=== PATIENT | female | born 1960 | race Caucasian/White ===

== ENCOUNTER 2018-04-01 13:00 | Emergency (ER) | payer OTHER ==
[2018-04-01] VITALS (7 sets, daily range): BP systolic 82–94; BP diastolic 45–52
[~2018-04-01] VITALS: Ht 154.9 cm; Wt 75.0 kg
[2018-04-01] MEDS ORDERED: SODIUM CHLORIDE 0.9% 1,000 ML IV ONE ×3 (13:15→18:00)
[2018-04-01] MEDS ORDERED: DEXTROSE 50%-WATER 25 GM/50 ML SYRINGE IVP ONE (13:15)
[2018-04-01 13:19] LABS: GLUCOSE,POINT OF CARE 44 MG/DL (70-110)
[2018-04-01 13:47] LABS: HEMATOCRIT 23.4 % (36-46); HEMOGLOBIN 7.1 g/dL (12.0-16.0); MEAN CORPUSCULAR HEMOGLOBIN 18.5 pg (26.0-34.0); MEAN CORPUSCULAR HGB CONC 30.4 G/dL (31.0-37.0); MEAN CORPUSCULAR VOLUME 61 fL (80-100); RED BLOOD CELL COUNT(AUTO) 3.83 MIL/uL (4.00-5.20); RED CELL DISTRIBUTION WIDTH 20.2 % (11.5-14.5)
[2018-04-01 13:50] LABS: ANION GAP 12 mmol/L (8-16); CARBON DIOXIDE 20 mmol/L (22-29); CHLORIDE 99 mmol/L (98-107); CREATININE 1.26 mg/dL (0.60-1.30); GLOMERULAR FILTR. RATE CALC 43 mL/min (>60); GLUCOSE,RANDOM 66 mg/dL (70-110); POTASSIUM 4.8 mmol/L (3.5-5.1); SODIUM SERUM 131 mmol/L (136-145); UREA NITROGEN, BLOOD 32 mg/dL (7-18)
[2018-04-01 13:52] LABS: INR 1.2 (0.9-1.1); PROTHROMBIN TIME 12.7 SEC (9.4-11.6)
[2018-04-01 13:54] LABS: GLUCOSE,POINT OF CARE 210 MG/DL (70-110)
[2018-04-01 13:56] LABS: ALANINE AMINOTRANSFERASE 19 U/L (12-78); ALBUMIN 2.3 g/dL (3.4-5.0); ALKALINE PHOSPHATASE 324 U/L (46-116); ASPARTATE AMINOTRANSFERASE 63 U/L (15-37); BILIRUBIN,TOTAL 0.6 mg/dL (0.1-1.0); LIPASE 54 U/L (73-393); TOTAL PROTEIN, SERUM 7.5 g/dL (6.4-8.2)
[2018-04-01 13:59] LABS: PLATELET COUNT (AUTO) 770 K/uL (150-450)
[2018-04-01 14:00] LABS: LACTIC ACID 3.8 mmol/L (0.4-2.0)
[2018-04-01 14:09] LABS: BAND NEUTROPHILS % (MANUAL) 3 % (0-5); LYMPHOCYTES % (MANUAL) 12 % (22-44); MONOCYTES % (MANUAL) 5 % (2-9); SEGMENTED NEUTROPHILS % 80 % (40-70)
[2018-04-01] MEDS ORDERED: PANTOPRAZOLE SODIUM 40 MG/VIAL IVP ONE (14:15)
[2018-04-01] MEDS ORDERED: PIPERACILLIN/TAZO 3.375 GM/D5W 50 ML IV ONE (14:45)
[2018-04-01] MEDS ORDERED: SODIUM CHLORIDE 0.9% 100 ML ONE (14:48)
[2018-04-01] MEDS ORDERED: IOVERSOL 320 MG/ML 100 ML VIAL ONE (14:48)
[2018-04-01 15:16] LABS: ABG A-A DIFF O2 16.5 mmHg (10-20.0); ABG BASE EXCESS -9.7 mmol/L (-2.0-3.0); ABG CARBOXYHEMOGLOBIN 2.5 % (0.0-1.5); ABG HCO3 17.2 mmol/L (22.0-26.0); ABG METHEMOGLOBIN 0.3 % (0.0-1.5); ABG OXYGEN SATURATION 97.1 % (95.0-98.0); ABG OXYHEMOGLOBIN 94.4 % (94.0-100.0); ABG PCO2 29 mmHg (35-45); ABG PH 7.358 (7.35-7.450); ABG TOTAL HEMOGLOBIN 6.6 G/dL (12.0-18.0); O2 DEVICE,BLOOD GAS ROOM AIR (ROOM AIR); SITE, BLOOD GAS RT RADIAL; SOURCE, BLOOD GAS ARTERIAL; TEMPERATURE, FAHRENHEIT, BG 97.6 FAHREN (96.0-98.6)
[2018-04-01 15:21] LABS: APPEARANCE,URINE CLEAR (CLEAR); BILIRUBIN,URINE NEGATIVE (NEGATIVE); GLUCOSE, URINE (UA) 250 mg/dL (NEGATIVE); KETONES,URINE NEGATIVE (NEGATIVE); LEUKOCYTE ESTERASE ,URINE NEGATIVE (NEGATIVE); NITRATE,URINE NEGATIVE (NEGATIVE); OCCULT BLOOD,URINE NEGATIVE (NEGATIVE); PH,URINE 5.5 (5.0-8.0); PROTEIN,URINE NEGATIVE (NEGATIVE); UROBILINOGEN,URINE 0.2 mg/dL (<=1.0)
[2018-04-01] MEDS ORDERED: LISI-661 PO (15:28)
[2018-04-01] MEDS ORDERED: METF-960 PO (15:28)
[2018-04-01 15:43] LABS: BACTERIA,URINE Rare /HPF (None Seen); RBC,URINE 0-2 /HPF (0-2); SQUAMOUS EPITHELIAL CELL,UR Moderate /LPF (None Seen); WBC,URINE 0-2 /HPF (0-5)
== END 2018-04-01 22:00 | disposition short-term general hospital (02) ==
LOC: EMS 13:01
DX: A41.9 Sepsis, unspecified organism (principal); K92.2 Gastrointestinal hemorrhage, unspecified; D64.9 Anemia, unspecified; L02.91 Cutaneous abscess, unspecified; R19.09 Other intra-abdominal and pelvic swelling, mass and lump; E11.9 Type 2 diabetes mellitus without complications; I10 Essential (primary) hypertension; Z79.899 Other long term (current) drug therapy; Z79.84 Long term (current) use of oral hypoglycemic drugs
CPT/HCPCS: 36415; 36430; 71045; 74177; 80053; 81001; 82805; 82948; 82962; 83605; 83690; 84484; 85025; 85610; 85730; 86850; 86900; 86901; 86920; 87040; 93005; 96365; 96366; 96375; 99291; C9113; J2543; J7030; J7050; P9016; Q9967